=== PATIENT | female | born 1955 | race Caucasian/White ===

== ENCOUNTER 2018-11-20 20:30 | Emergency (ER) | payer SELFPAY ==
[~2018-11-20] VITALS: Ht 172.7 cm; Wt 90.0 kg
[~2018-11-20 20:30] MED LIST: BUSPIRONE7.5 MG PO; DIAZEPAM2 M1 PO; FLEXERIL5 MG PO; GABAPENTIN300 MG PO; INDOMETHACIN25 MG PO; MEDDOSEPAK PO; MOBIC7.5 M1 PO; NAPROXEN500 MG PO; NO; PREDNISONE5 MG PO; TRAMADOL HCL50 MG PO
[2018-11-21 01:31] LABS: HEMATOCRIT 38.2 % (37.0-47.0); HEMOGLOBIN 13.2 g/dl (12.0-16.0); IMMATURE GRANULOCYTES 0.5 % (0.0-5.0); MEAN CELL VOLUME 89.7 fL CALC (80.0-100.0); MEAN CORPUSCULAR HGB CONC 34.6 g/L CALC (32.0-36.0); NEUT# 10.88 thou/uL (2.00-7.15); RED BLOOD COUNT 4.26 mill/uL (4.20-5.60)
[2018-11-21 01:38] LABS: ALBUMIN 3.7 g/dL (3.2-5.0); ALKALINE PHOSPHATASE 77 u/l (38-126); BUN 10 mg/dL (8-23); BUN/CREATININE RATIO 15 (12-20 (CALC)); CARBON DIOXIDE 23 mmol/l (22-30); CHLORIDE 98 mmol/l (95-108); CREATININE 0.6 mg/dL (0.5-1.0); GFR > 60 ML/MIN (>=60 (CALC)); GFR FOR AFR.AMER. > 60 ML/MIN (>=60 (CALC)); POTASSIUM 4.5 mmol/l (3.5-5.1); SGOT/AST 16 u/l (9-36); TOTAL PROTEIN 6.2 g/dL (6.3-8.2)
[2018-11-21 01:50] LABS: ANION GAP 14 (6-22 (CALC)); BILIRUBIN, TOTAL 0.5 mg/dL (0.0-1.4); SODIUM 130 mmol/l (137-146)
[2018-11-21 02:30] VITALS: BP 124/61
== END 2018-11-21 02:47 | disposition short-term general hospital (02) | DRG 552 ==
LOC: ED 20:30
PROVIDERS: Emergency Medicine
DX: S32.010A Wedge compression fracture of first lumbar vertebra, initial encounter for closed fracture (principal); F17.210 Nicotine dependence, cigarettes, uncomplicated; X50.0XXA Overexertion from strenuous movement or load, initial encounter; Y93.89 Activity, other specified; Y92.009 Unspecified place in unspecified non-institutional (private) residence as the place of occurrence of the external cause